=== PATIENT | male | born 1995 | race Caucasian/White ===

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

== ENCOUNTER 2018-04-16 18:21 | Emergency (ER) | payer OTHER ==
--- NOTE | 2018-04-16 19:41 | ED Physician Documentation ---
General Adult - HISTORIAN Historian: patient - HPI Stated Complaint: Feeling of numbness to extremities/lips Chief Complaint: General Adult Additional Information: Patient presents to ED with a 2 year history of intermittent left chest discomfort that comes and goes only when he is thinking about it. He states he was traveling with his mother rosario when he felt the chest discomfort, he got nervous he was having a heart attack. Then his hands, feet and lips began to go numb. His girlfriend talked him through some deep breathing exercises and his symptoms subsided, however, about that time he saw the hospital sign and wanted to come to the ED. He also complains of right wrist pain with excessive extension, especially when playing video games. He denies any nausea, vomiting, diarrhea, abdominal pain, fever, chills, shortness of breath or syncope. Onset: other (2 years) Timing: better Severity: mild Further Comments: no - ROS CONST: no problems EYES/ENT: none CVS/RESP: none GI/: none MS/SKIN/LYMPH: none NEURO/PSYCH: tingling - PAST HX Past History: none Other History: none Surgeries/Procedures: none Allergies/Adverse Reactions: Allergies Allergy/AdvReac Type Severity Reaction Status Date / Time No Known Drug Allergies Allergy Verified 04/16/18 19:02 Home Medications: Ambulatory Orders Medication Instructions Recorded NK 08/18/16 - SOCIAL HX Smoking History: non-smoker Alcohol Use: none Drug Use: none - FAMILY HX Family History: No - VITAL SIGNS Vital Signs: Vital Signs Temp Pulse Resp BP Pulse Ox 98.5 F 88 22 120/75 100 04/16/18 18:21 04/16/18 18:21 04/16/18 18:21 04/16/18 18:21 04/16/18 18:21 - REVIEWED ASSESSMENTS Nursing Assessment Reviewed: Yes Vitals Reviewed: Yes Progress - EKG/XRAY/CT EKG: NSR Comments: 71 bpm ED Results Lab/Radiology - Orders Orders: ED Orders Category Date Time Status CBC/PLATELET/DIFF Routine Lab 04/16/18 Ordered CMP [CMP] Routine Lab 04/16/18 Ordered EKG WITH COMPARISON Stat Ther 04/16/18 Ordered General Adult Physical Exam - PHYSICAL EXAM GENERAL APPEARANCE: no distress EENT: DAVID NECK: normal inspection, supple RESPIRATORY: no resp distress CVS: reg rate & rhythm, heart sounds normal ABDOMEN: soft, normal bowel sounds BACK: normal inspection SKIN: warm/dry, normal color EXTREMITIES: non-tender, normal range of motion, no evidence of injury NEURO: oriented X3, motor nml Discharge Clincal Impression: Anxiety, Carpal tunnel syndrome of right wrist Referrals: Primary Doctor,No [Primary Care Provider] - 2 Days Additional Instructions: 1. Exercise daily, even if only for 20 minutes. 2. Maintain healthy diet 3. Build a strong support network of people you can talk to about life situations 4. Follow up with PCP within 3 days 5. Return to ED with new or worsening symptoms. Condition: Stable Disposition: 01 HOME, SELF-CARE Decision to Admit: NO Date of Decison to Admit: 04/16/18 Decision Time: 20:54
[2018-04-16 20:44] LABS: eGFR (Non-African) > 60
[2018-04-16 20:57] VITALS: BP 122/74
[2018-04-17 07:00] LABS: BASOPHILS % 0.3 (0.0-1.5); MEAN CORPUSCULAR HEMOGLOBIN 30.5 pg (28.0-34.0); MONOCYTES % 4.8 % (0.0-11.0); NEUTROPHILS # 5.9 # k/uL (1.4-7.7)
== END 2018-04-16 20:39 | disposition home or self-care (01) ==
LOC: ED 18:21
DX: F41.9 Anxiety disorder, unspecified (principal); G56.01 Carpal tunnel syndrome, right upper limb
CPT/HCPCS: 36415; 80053; 85025; 99282; 99284